=== PATIENT | male | born 1970 | race Caucasian/White ===

== ENCOUNTER 2019-06-30 08:39 | Emergency (ER) | payer SELFPAY ==
[~2019-06-30] VITALS: Ht 167.6 cm; Wt 64.4 kg
[2019-06-30] MEDS ORDERED: DAY TIME COLD-1 EAC1 PO (08:47)
== END 2019-06-30 08:57 | disposition home or self-care (01) ==
LOC: ED 08:39
DX: R05 Cough (principal)

== ENCOUNTER 2021-07-05 08:02 | Emergency (ER) | payer MEDICAID ==
[~2021-07-05] VITALS: Ht 167.6 cm; Wt 64.4 kg
[~2021-07-05 08:02] MED LIST: DAY TIME COLD-1 EAC1 PO
[2021-07-05] MEDS ORDERED: HYDROCODON-ACE1 EA11 PO ×2 (09:29)
== END 2021-07-05 09:48 | disposition home or self-care (01) ==
LOC: ED 08:02
DX: S20.211A Contusion of right front wall of thorax, initial encounter (principal); W10.8XXA Fall (on) (from) other stairs and steps, initial encounter; F17.200 Nicotine dependence, unspecified, uncomplicated
CPT/HCPCS: 71101; 99283-25; A9270